=== PATIENT | female | born 1940 ===

== ENCOUNTER 2018-04-13 09:31 | Emergency (ER) | payer OTHER ==
[~2018-04-13] VITALS: Ht 162.6 cm; Wt 63.5 kg
[2018-04-13] MEDS ORDERED: TIROSINT25 MCG PO (09:43)
== END 2018-04-13 13:14 | disposition home or self-care (01) ==
LOC: ER 09:31
DX: R21 Rash and other nonspecific skin eruption (principal); T78.49XA Other allergy, initial encounter; X58.XXXA Exposure to other specified factors, initial encounter

== ENCOUNTER 2018-04-14 10:03 | Emergency (ER) | payer OTHER ==
[~2018-04-14] VITALS: Ht 144.8 cm; Wt 59.0 kg
[~2018-04-14 10:03] MED LIST: TIROSINT25 MCG PO
== END 2018-04-14 14:28 | disposition home or self-care (01) ==
LOC: ER 10:03
DX: R60.0 Localized edema (principal); T78.49XD Other allergy, subsequent encounter; X58.XXXD Exposure to other specified factors, subsequent encounter